=== PATIENT | male | born 1970 | race Caucasian/White ===

== ENCOUNTER → 2022-06-18 | Day surgery (SDC) | payer BC ==
[~2022-06-18] MED LIST: Lactated Ringers 1,000 ML IV SCH; Propofol 200 MG/20 ML SDV ONE
== END | disposition home or self-care (01) ==
LOC: MW.SDS 09:22
PROVIDERS: ATTEND Surgery
DX: Z12.11 Encounter for screening for malignant neoplasm of colon (principal); Z83.71 Family history of colonic polyps; Z80.0 Family history of malignant neoplasm of digestive organs; Z79.899 Other long term (current) drug therapy
CPT/HCPCS: 45378; J2704; J7120; 00812

== ENCOUNTER 2023-10-21 22:20 | Emergency (ER) | payer BC ==
[2023-10-22] MEDS: Doxycycline 100 MG Cap PO ONE (00:55)
[2023-10-22] MEDS: Cephalexin 500 MG Cap PO ONE (00:55)
== END 2023-10-22 00:58 | disposition home or self-care (01) ==
LOC: MW.ED 22:20
DX: L03.113 Cellulitis of right upper limb (principal); M70.31 Other bursitis of elbow, right elbow; Z75.8 Other problems related to medical facilities and other health care
CPT/HCPCS: 99283; A9270